=== PATIENT | male | born 1970 | race Caucasian/White ===

== ENCOUNTER → 2016-09-24 | Outpatient (CLI) | payer OTHER ==
[~2016-09-24] MED LIST: GLUCOPHAGE500 MG PO; HUMULIN 70100 UNIT/1 SQ; LORTAB 5-325 M1 EACH PO; NEURONTIN 400400 MG PO; PRAVASTATIN SOD10 MG PO; PRAVASTATIN SOD40 MG PO; ROCEPHIN 22 G/50 ML INJ; VANCOCIN 125MG/2.5ML IV; VITAMIN C 500500 MG PO
== END ==
LOC: KOH-I 09-17 11:30
DX: M86.072 Acute hematogenous osteomyelitis, left ankle and foot (principal); E11.9 Type 2 diabetes mellitus without complications
CPT/HCPCS: 73718

== ENCOUNTER → 2016-10-29 | Outpatient (CLI) | payer OTHER ==
[~2016-10-29] VITALS: Ht 182.9 cm; Wt 90.7 kg
[2016-10-29 12:43] LABS: BUN/CREATININE RATIO 17 (0-10)
== END ==
LOC: OPSV 11:52
PROVIDERS: Podiatrist Foot & Ankle Surgery
DX: M86.8X7 Other osteomyelitis, ankle and foot (principal)
CPT/HCPCS: 36415; 80048; 96365; 96366; J3370; J7070